=== PATIENT | male | born 1960 | race Caucasian/White ===

== ENCOUNTER 2021-02-04 15:40 | Emergency (ER) | payer BC, SELFPAY ==
[2021-02-04 15:50] VITALS: BP 135/63; PULSE 88; RESP 18; TEMP 36.8; O2SAT 97; BMI 25.7
--- NOTE | 2021-02-04 16:03 | XR_ITS ---
PROCEDURE: XR LUMBAR SPINE 2-3V CLINICAL INDICATION: INJURY Pain COMPARISON: No exams were available for comparison FINDINGS: There is minimal lumbar curvature convex left. Anterior osteophytes are present at T11-T12 L2-L3 L4 and L5. There is mild degenerative disc disease at L4-5 with 2 mm anterolisthesis of L4. No acute fracture or dislocation. No lytic or blastic change. IMPRESSION: Degenerative changes, no acute finding. Dictated by: Rodo Lara MD 02/04/2021 16:36 Rodo Lara MD in [place] 02/04/2021 16:36
--- NOTE | 2021-02-04 16:21 | HMH.EDUTC ---
[facility] [place] Clinical Impression: Low back strain Qualifiers: Encounter type: initial encounter Qualified Code(s): S39.012A - Strain of muscle, fascia and tendon of lower back, initial encounter Disposition: Home, Self-Care Condition on Discharge: Good Instructions: DI for Low Back Pain, Methocarbamol Additional Instructions: Etodolac as prescribed by your PCP *Not additional anti-inflammatory like ibuprofen motrin, aleve, advil with the above amount of Etodolac. You can still take Tylenol every 4 hours as needed if you need something else for pain *Ice 20 minutes every 2 hours for the first 48 hours after the initial injury followed by moist heat every 20 minutes 3-4 times a day to affected area *Muscle relaxer as prescribed as needed for muscle spasms but remember, it WILL cause drowsiness You cannot take it and drive, operate machinery or care for small children. *Keep this area active, no movement leads to more stiffness, However take it easy and avoid heavy lifting pushing or pulling *Follow up with you family doctor if no improvement for further treatment Return if needed Straight to ER if any loss of control of bowel or bladder Prescriptions: methocarbamoL [Methocarbamol] 750 mg PO BID PRN #10 tab PRN Reason: Muscle Spasm Transmission Status: Received by JAY Edwards Referrals: Yasir Stewart PA [Primary Care Provider] - As needed Forms: Work/School Release Time of Disposition: 16:42 Medical Decision Making - Cliff Inquiry Pt receiving controlled substance: No Cliff was queried for this patient: No Vital Signs: 02/04/21 15:50 02/04/21 16:37 Temperature 98.2 F 98.2 F Temperature Source Oral Pulse Rate 88 Pulse Rate [Right Brachial] 88 Respiratory Rate 18 18 Blood Pressure 135/63 Blood Pressure [Right Arm] 135/63 Blood Pressure Mean [Right Arm] 87 Blood Pressure Source [Right Arm] Automatic Cuff Blood Pressure Position [Right Arm] Sitting 02 Sat by Pulse Oximetry 97 Oxygen Delivery Method Room Air Orders (Tests/Meds): ED MEDICATIONS Discontinued Medications Generic Name Dose Route Start Last Admin Trade Name Freq PRN Reason Stop Dose Admin Methylprednisolone Sodium Succinate 125 mg 02/04/21 16:42 02/04/21 16:47 Methylprednisolone Sod Succ 125mg Vial IM 02/04/21 16:43 125 mg ONCE ONE Administration - Radiology Data #1 Image(s): L-Spine Image Reviewed: Yes I have reviewed radiologist's interpretation IMPRESSION: Degenerative changes, no acute finding. Medical Decision Narrative: Patient states that he has taken Solu Medrol in the past without complications or reactions Aware it may raise blood sugar then return to normal [facility] [place] - General Stated complaint: a/o 02/03 16:20 injured lower back left side Time Seen by Provider: 02/04/21 16:21 Mode of Arrival: Ambulatory Source of Information: Patient Limitations: No Limitations Description of Symptoms (Recalled from Triage Doc. by RN): PATIENT C/O LEFT LOWER BACK PAIN SINCE YESTERDAY. 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
[2021-02-04 16:37] VITALS: BP 135/63; PULSE 88; RESP 18; TEMP 36.8; O2SAT 97
== END 2021-02-04 16:40 | disposition home or self-care (01) ==
PROVIDERS: Emergency Provider Nurse Practitioner; PCP Physician Assistant
DX: S39.012A Strain of muscle, fascia and tendon of lower back, initial encounter (principal); X50.0XXA Overexertion from strenuous movement or load, initial encounter; Y92.69 Other specified industrial and construction area as the place of occurrence of the external cause; Y99.0 Civilian activity done for income or pay; E11.9 Type 2 diabetes mellitus without complications
CPT/HCPCS: 72100; 96372; 99202; G0463